=== PATIENT | female | born 1960 | race Caucasian/White ===

== ENCOUNTER 2020-05-03 08:06 | Outpatient (CLI) | payer OTHER ==
--- NOTE | 2020-05-03 12:03 | DEXA Report ---
Reason: POST MENOPAUSAL Procedure Date: 05/03/2020 Accession Number: [id number] / [id number] Procedure: DEX - Dexa Spine and/or Hip CPT Code: Final Report FULL RESULT: PROCEDURE: Dexa Spine and/or Hip INDICATIONS: POST MENOPAUSAL TECHNIQUE: Dual energy x-ray absorptiometry (DXA) was performed on a [email or web address] System. Regions measured are the AP Spine, femoral neck, and if needed forearm. COMPARISON: None. FINDINGS: Lumbar Spine: Bone Mineral Density 1.182 g/cm/cm,T score 0.0, normal Left Hip: Bone Mineral Density 1.028 g/cm/cm,T score 0.2, normal Left Femoral Neck: Bone Mineral Density 1.015 g/cm/cm, T score -0.2, normal (T score greater or equal to -1.0: NORMAL) (T score from -1.1 to -2.4: OSTEOPENIA) (T score less than or equal to -2.5 to: OSTEOPOROSIS) Impression: Normal bone mineral density. No elevated fracture risk. Patients with diagnosis of osteoporosis or osteopenia should have regular bone mineral density assessment. For those eligible for Medicare, routine testing is allowed once every 2 years. Testing frequency can be increased for patients who have rapidly progressing disease or for those who are receiving medical therapy to restore bone mass. Reviewed by: Lazara Domingo MD on 05/03/2020 12:02 PM PDT Approved by: Lazara Domingo MD on 05/03/2020 12:02 PM PDT Station ID: [id number]
== END 2020-05-03 08:07 | disposition home or self-care (01) ==
LOC: DI 08:06
PROVIDERS: ATTEND Physician Assistant Medical
DX: Z78.0 Asymptomatic menopausal state (principal)
CPT/HCPCS: 77080

== ENCOUNTER 2020-06-21 14:45 | Outpatient (CLI) | payer OTHER ==
--- NOTE | 2020-06-21 15:34 | XRAY Report ---
PROCEDURE: Shoulder 3 View LT INDICATIONS: LEFT SHOULDER PAIN TECHNIQUE: 3 views of the shoulder were acquired. COMPARISON: None. FINDINGS: Bones: No fractures or dislocations. No suspicious bony lesions. Visualized ribs appear intact. Soft tissues: No suspicious soft tissue calcifications. IMPRESSION: Mild AC joint osteoarthritis, no trauma found. Reviewed by: Zeeshan Brandt MD on 06/21/2020 3:32 PM PDT Approved by: Zeeshan Brandt MD on 06/21/2020 3:32 PM PDT Station ID: [id number]
--- NOTE | 2020-06-21 15:36 | XRAY Report ---
PROCEDURE: Cervical Spine 2 View INDICATIONS: CERVICAL RADICULOPATHY TECHNIQUE: 3 view(s) of the cervical spine were acquired. COMPARISON: None. FINDINGS: Bones: No fractures or dislocations to the T1 level. The lateral masses of C1 appear intact on the odontoid view. No suspicious bony lesions. There is a moderate degree of degenerative facet disc dis ease from C5-C7. Facet osteoarthritis appears greater on the left than the right, and no trauma is fo und. Soft tissues: No prevertebral soft tissue swelling. IMPRESSION: Left greater than right degenerative facet osteoarthritis, disc disease is moderate from C5 inferiorly spinal and foraminal stenosis likely is present along the lower half of the cervical s pine.. Reviewed by: Zeeshan Brandt MD on 06/21/2020 3:34 PM PDT Approved by: Zeeshan Barndt MD on 06/21/2020 3:34 PM PDT Station ID: [id number]
== END 2020-06-21 23:59 | disposition home or self-care (01) ==
LOC: DI.WCP 14:45
PROVIDERS: ATTEND Physician Assistant Medical
DX: M19.012 Primary osteoarthritis, left shoulder (principal); M47.812 Spondylosis without myelopathy or radiculopathy, cervical region; M50.322 Other cervical disc degeneration at C5-C6 level
CPT/HCPCS: 72040

== ENCOUNTER 2024-02-04 08:50 | Outpatient (CLI) | payer OTHER ==
--- NOTE | 2024-02-04 15:08 | XRAY Report ---
PROCEDURE: Shoulder 2+V RT INDICATIONS: RIGHT SHOULD IMPINGEMENT SYNDROME TECHNIQUE: 3 views of the shoulder were acquired. COMPARISON: None. FINDINGS: Bones: No acute fractures or dislocations. No suspicious bony lesions. Visualized ribs appear inta ct. Mild acromioclavicular joint osteoarthrosis. Soft tissues: No suspicious soft tissue calcifications. The visualized lungs are within normal limi ts. IMPRESSION: Mild acromioclavicular joint osteoarthrosis. MRI could be performed for further evaluation if indicat ed clinically. Reviewed by: Neil Harvey MD on 02/04/2024 3:07 PM PDT Approved by: Neil Harvey MD on 02/04/2024 3:07 PM PDT Station ID: [id number]
== END 2024-02-04 08:51 | disposition home or self-care (01) ==
LOC: DI.N 08:50
PROVIDERS: ATTEND Physician Assistant Medical
DX: M19.011 Primary osteoarthritis, right shoulder (principal)

== ENCOUNTER 2024-04-22 10:07 | Outpatient (CLI) | payer OTHER ==
--- NOTE | 2024-04-22 12:31 | XRAY Report ---
PROCEDURE: Wrist 3+V BL INDICATIONS: WRIST PAIN TECHNIQUE: 3 views of the wrist were acquired. COMPARISON: None. FINDINGS: Bones: No fractures or dislocations. No suspicious bony lesions. The bones are somewhat osteopenic. There is some degree of radiocarpal joint space loss bilaterally. Vague subchondral lucencies are pr esent. Findings are nonspecific. Cannot exclude inflammatory arthritis. Soft tissues: No suspicious soft tissue calcifications or masses. IMPRESSION: 1. No acute bony abnormality. 2. Nonspecific arthritic change in the wrists. Findings may potentially represent evidence of an infl ammatory arthritis. Recommend clinical correlation and correlation with laboratory values. Reviewed by: Aaron Lewis MD on 04/22/2024 12:30 PM PDT Approved by: Aaron Lewis MD on 04/22/2024 12:30 PM PDT Station ID: [id number]
--- NOTE | 2024-04-22 20:19 | XRAY Report ---
PROCEDURE: Knee 3V BL INDICATIONS: BILATERAL KNEE PAIN TECHNIQUE: 6 views of the bilateral knee was obtained. COMPARISON: None FINDINGS: Bones: No fractures or dislocations. No suspicious bony lesions. Bilateral medial and lateral mild joint space narrowing. Narrowing of the lateral facet patellofemoral joint noted as well Soft tissues: No knee joint effusion. No suspicious soft tissue calcifications or masses. IMPRESSION: Mild tricompartmental joint space narrowing without marginal osteophyte. Reviewed by: Bryant Kaufman MD on 04/22/2024 7:17 PM AKDT Approved by: Bryant Kaufman MD on 04/22/2024 7:17 PM AKDT Station ID: [id number]
== END 2024-04-22 10:08 | disposition home or self-care (01) ==
LOC: DI 10:07
PROVIDERS: ATTEND Physician Assistant Medical
DX: M19.031 Primary osteoarthritis, right wrist (principal); M19.032 Primary osteoarthritis, left wrist; M17.0 Bilateral primary osteoarthritis of knee

== ENCOUNTER 2024-04-27 16:00 | Outpatient (CLI) | payer OTHER ==
[2024-04-27 18:16] LABS: RHEUMATOID FACTOR NEGATIVE (Negative)
[2024-04-27 18:21] LABS: CRP - C-REACTIVE PROTEIN 10.4 mg/dL (<0.5); URIC ACID 4.8 mg/dL (2.3-6.6)
[2024-04-28 16:08] LABS: ANTI-DNA (DS) AB QN <1 IU/mL (0-9)
== END 2024-04-27 16:01 | disposition home or self-care (01) ==
LOC: LAB.N 16:00
PROVIDERS: ATTEND Physician Assistant Medical
DX: M25.539 Pain in unspecified wrist (principal)
CPT/HCPCS: 36415; 84550; 85651; 86038; 86140; 86200; 86225; 86430

== ENCOUNTER 2024-05-17 10:15 | Outpatient (CLI) | payer OTHER ==
--- NOTE | 2024-05-19 11:00 | Mammography Report ---
BILATERAL DIGITAL SCREENING MAMMOGRAM 3D/2D: 05/17/2024 CLINICAL: Routine screening. Comparison is made to exams dated: 01/09/2022 mammogram, 11/20/2020 mammogram, 06/09/2019 mammogram, 2017 mammogram, 05/01/2017 mammogram, and 03/27/2016 mammogram - [facility]. Both breasts are heterogeneously dense, which may obscure small masses (category c / 51-75% glandular tissue). No significant masses, calcifications, or other findings are seen in either breast. There has been no significant interval change. IMPRESSION: NEGATIVE There is no mammographic evidence of malignancy. A 1 year screening mammogram is recommended. Based on the Tyrer Cuzick model (a risk assessment model) the patient's lifetime risk is 11.2% and he r 10 year risk is 4.9%. According to the ACR, ACS, and NCCN guidelines, an annual breast MRI exam kwame ng with mammogram is recommended if the patient's lifetime risk is 20% or greater. This exam was interpreted at Station ID: [id number]. NOTE: For mammograms, a report in lay terms will be sent to the patient. Approximately 15% of breast malignancies will not be visualized mammographically. In the management of a palpable breast mass, a negative mammogram must not discourage biopsy of a clinically suspicious lesion. Electronically Signed By: Rodolfo bear/marla:05/18/2024 08:52:22 letter sent: No_Letter ACR BI-RADS Category 1: Negative 3341F PARENCHYMAL PATTERN: (D) - The breast(s) demonstrate(s) heterogeneously dense fibroglandular jossy clifton. BI-RADS CATEGORY: (1) - 1 RECOMMENDATION: (ANNUAL) - Recommend routine annual screening mammography. [id number] 1 year screening LATERALITY: (B)
== END 2024-05-17 10:16 | disposition home or self-care (01) ==
LOC: DI.N 10:15
DX: Z12.31 Encounter for screening mammogram for malignant neoplasm of breast (principal); R92.333 Mammographic heterogeneous density, bilateral breasts